=== PATIENT | male | born 1970 | race Caucasian/White ===

== ENCOUNTER 2018-02-01 18:32 | Emergency (ER) | payer MEDICAID ==
[~2018-02-01] VITALS: Ht 188 cm; Wt 122.5 kg
[2018-02-01 18:44] VITALS: Ht 188 cm; Wt 122.5 kg
[2018-02-01 21:07] VITALS: BP 110/90
== END 2018-02-01 21:07 | disposition home or self-care (01) ==
LOC: ED 18:32
DX: T23.002A Burn of unspecified degree of left hand, unspecified site, initial encounter (principal); T23.001A Burn of unspecified degree of right hand, unspecified site, initial encounter; R03.0 Elevated blood-pressure reading, without diagnosis of hypertension; W86.8XXA Exposure to other electric current, initial encounter; Y93.89 Activity, other specified; Y99.8 Other external cause status; Y92.89 Other specified places as the place of occurrence of the external cause
CPT/HCPCS: 90715